=== PATIENT | female | born 1930 | race Caucasian/White ===

== ENCOUNTER → 2018-07-30 | Outpatient (CLI) | payer OTHER ==
[~2018-07-30] MED LIST: ARIMIDEX1 MG PO; BYSTOLIC2.5 MG PO; CALCIUM 600+D1 EACH PO; CLARITIN10 MG PO; COZAAR100 MG PO; DELTASONE20 MG PO; IRON325 PO; LASIX 40 MG TAB40 M2 PO; MAGOX 400400 MG PO; MULTAQ400 MG PO; ONDANSETRON HCL4 M2 PO; POTASSIUM20 PO; SYNTHROID75 MCG PO; TRADJENTA5 MG; TRIAMCINOLONE 080 G3 TOP; UNICOMPLEX M TA1 TA1 PO; VITAMIN D3400 UNIT PO; VITAMINC500 PO; WELCHOL 625 MG625 MG PO; [UNRECOGNIZED DRUG - OTHER] PO
[2018-07-30 09:08] VITALS: BP 100/48; BP 100/50; BP 114/44; BP 92/42
--- NOTE | 2018-07-30 11:54 | NUR ---
ARRIVED AMBULATORY. MADE SELF COMFORTABLE. BREAKFAST OPRDERED AND NYLA HUGGER SET AT MED. APPLIED. HISTORY REVIEWED. TRANSFUSION COMPLETED AND TOLERATED WELL. DENEIS QUESTIONS OR NEEDS AT DISCHARGE.
== END ==
LOC: M.LAB 08:00 → M.INFUS 08:00
DX: D46.9 Myelodysplastic syndrome, unspecified (principal)